=== PATIENT | female | born 1970 | race Caucasian/White ===

== ENCOUNTER 2023-07-05 05:38 | Observation (INO) ==
[~2023-07-05 05:38] MED LIST: Naloxone 0.4 mg VIAL 0.4 mg/ml 1 ml VIAL IV PRN; Ondansetron 4 mg VIAL 2 MG/ML 2 ml VIAL IV PRN
[2023-07-05] MEDS ORDERED: Tranexamic Acid 1 GM/100ML BAG 2,000 MG/200 ML BAG IV ONE (06:00)
[2023-07-05] MEDS ORDERED: ceFAZolin 2 GM in NS PREMIX 2 GM/100 ML BAG IVPB ONE (06:00)
[2023-07-05 06:33] LABS: Rapid COVID-19 Molecular Undetected (Undetected)
[2023-07-05] MEDS ORDERED: Propofol 10 MG/ML 20 ML BTL ONE ×2 (06:33→09:14)
[2023-07-05] MEDS ORDERED: Ondansetron 4 mg VIAL 2 MG/ML 2 ml VIAL ONE (06:35)
[2023-07-05] MEDS ORDERED: Lidocaine 2% PF 5 ML VIAL ONE (06:35)
[2023-07-05] MEDS ORDERED: Midazolam 2 mg/2 ml VIAL 1 mg/ml 2 ml VIAL (2 mg) ONE ×2 (06:41→07:28)
[2023-07-05] MEDS ORDERED: Phenylephrine IV 10 MG/ML 1 ml VIAL ONE (06:45)
[2023-07-05] MEDS ORDERED: Dexmedetomidine 200 mcg/2 ml 2 ml VIAL (200 mcg) ONE ×2 (07:10→08:06)
[2023-07-05] MEDS ORDERED: fentaNYL 100 mcg/2 ml 50 MCG/ML VIAL ONE ×2 (07:10→10:23)
[2023-07-05] MEDS ORDERED: Dexamethasone IV 4 MG/ML VIAL 1 ml VIAL ONE ×2 (07:10→09:36)
[2023-07-05] MEDS ORDERED: ROPIVACAINE 5 MG/ML 30 ML BTL (0.5%) ONE ×2 (07:15→07:18)
[2023-07-05] MEDS ORDERED: Ropivacaine 5 MG/ML 20 ML VIAL 0.5% (100 MG) ONE (07:18)
[2023-07-05] MEDS ORDERED: Ondansetron 4 mg VIAL 2 MG/ML 2 ml VIAL IV PRN (07:35)
[2023-07-05] MEDS ORDERED: Lactulose 30 ml UDC PO PRN (07:35)
[2023-07-05] MEDS ORDERED: Magnesium Hydroxide LIQ 30 ML UDC PO PRN (07:35)
[2023-07-05] MEDS ORDERED: Ondansetron ODT 4 mg TAB 4 MG TAB PO PRN (07:35)
[2023-07-05] MEDS ORDERED: Acetaminophen IV 1 GM/100ML 1,000 MG/100 ML BAG IV ONE (08:37)
[2023-07-05] MEDS: fentaNYL 100 mcg/2 ml 50 MCG/ML VIAL IV PRN (10:25)
[2023-07-05] MEDS: Lactated Ringers 1000 ml BAG 1,000 ML IV SCH ×2 (11:36→11:39)
[2023-07-05] MEDS: Buffered Lidocaine 1% SYRIN 1 ml INTRADERM ONE (11:38)
[2023-07-05] MEDS: Magnesium Hydroxide LIQ 30 ML UDC PO SCH (12:13)
[2023-07-05] MEDS: Vitamin THERAPEUTIC TAB PO SCH (12:14)
[2023-07-05] MEDS: ceFAZolin 1 GM ADVAN 1 GM in NS 0.9% 50 ML 50 ML IVPB SCH (16:24)
[2023-07-05] MEDS ORDERED: Dextrose 50% Syringe 50 ml 25 GM/50 ML SYRINGE IV PUSH PRN (17:10)
[2023-07-05] MEDS: CMCS: LoraTADine 10 mg TAB (NF) PO SCH (21:19)
[2023-07-05] MEDS: Morphine 2 MG/ML SYRINGE IV PRN (23:47)
[2023-07-06 06:51] LABS: Hematocrit 32.4 % (35-45); Hemoglobin 10.9 g/dL (11.5-14.3); Mean Platelet Volume 7.4 fL (7.5-11.2); Platelet Count 404 10^3/uL (150-450)
[2023-07-06 07:13] LABS: Creatinine, Serum 0.59 mg/dL (0.51-0.95); Potassium 4.7 mmol/L (3.5-5.0); eGFR CKD-EPI 107.7 (>60)
[2023-07-06] MEDS: DULoxetine DR 60 mg CAP PO SCH (07:42)
[2023-07-06] MEDS: SEMAGLUTIDE 7 MG PO SCH (07:43)
[2023-07-06 11:21] VITALS: BP 110/64
== END 2023-07-06 13:20 | disposition home or self-care (01) ==
LOC: OR 05:38 → SSU 05:38 → EDSTATUS 07:30
PROVIDERS: ADMIT Orthopaedic Surgery Adult Reconstructive Orthopaedic Surgery; ATTEND Orthopaedic Surgery Adult Reconstructive Orthopaedic Surgery